=== PATIENT | female | born 1995 | race Caucasian/White ===

== ENCOUNTER → 2016-11-30 | Outpatient (CLI) | payer OTHER ==
--- NOTE | 2016-11-30 17:59 | REP ---
Right foot series: Two views. History: Injury. Findings: Overall mineralization pattern is normal. There is no visible fracture or subluxation. Impression: Negative right foot radiographs. Signed by Ancelmo Barnard MD 12/01/2016 07:58 A
--- NOTE | 2016-11-30 17:59 | REP ---
Right ankle series: Four views: History: Injury to the right ankle. Findings: Four views of the right ankle demonstrate intact ankle mortise. No fracture or subluxation is seen. Mild anterior soft tissue swelling. Impression: No fracture seen. Mild anterior swelling. Signed by Ancelmo Barnard MD 12/01/2016 07:58 A
== END ==
LOC: M RAD 14:43
PROVIDERS: ATTEND Family Medicine Addiction Medicine
DX: S99.811A Other specified injuries of right ankle, initial encounter (principal); X58.XXXA Exposure to other specified factors, initial encounter; Y92.89 Other specified places as the place of occurrence of the external cause; Y93.89 Activity, other specified; Y99.8 Other external cause status

== ENCOUNTER 2017-01-12 15:02 | Outpatient (RCR) | payer OTHER | END 2017-01-15 | LOC: M PT 15:02 | PROVIDERS: ATTEND Family Medicine Addiction Medicine | DX: Z51.89 Encounter for other specified aftercare (principal); S99.811S Other specified injuries of right ankle, sequela; M54.2 Cervicalgia; X58.XXXS Exposure to other specified factors, sequela ==

== ENCOUNTER 2017-02-18 14:19 | Outpatient (RCR) | payer OTHER | END 2017-03-17 | LOC: M PT 14:19 | PROVIDERS: ATTEND Family Medicine Addiction Medicine | DX: Z51.89 Encounter for other specified aftercare (principal); M54.2 Cervicalgia; S99.811D Other specified injuries of right ankle, subsequent encounter; X58.XXXD Exposure to other specified factors, subsequent encounter ==

== ENCOUNTER → 2017-07-29 | Outpatient (REF) | payer OTHER | LOC: M SFHCWAGY 11:02 | DX: Z83.2 Family history of diseases of the blood and blood-forming organs and certain disorders involving the immune mechanism (principal) ==

== ENCOUNTER → 2017-08-17 | Outpatient (REF) | payer OTHER | LOC: M SFHCPLAZ 11:32 | DX: Z83.2 Family history of diseases of the blood and blood-forming organs and certain disorders involving the immune mechanism (principal) ==

== ENCOUNTER 2018-03-21 15:26 | Emergency (ER) | payer OTHER ==
[2018-03-21] MEDS: IBUPROFEN 600 MG TAB PO (18:30)
[2018-03-21] MEDS: LIDOCAINE VISCOUS 2% SOLN 15ML UDC SS (18:30)
[2018-03-21] MEDS: ONDANSETRON 4 MG ORAL DISINTEGRATING TAB (Q0162 PER 1MG) PO (18:30)
[2018-03-21 18:34] LABS: INFLUENZA A AMPLIFICATION NEGATIVE (NEGATIVE); INFLUENZA B AMPLIFICATION NEGATIVE (NEGATIVE)
[2018-03-21 19:03] LABS: HEMOGLOBIN 13.9 g/dl (12.0-15.5); MEAN CORPUSCULAR HEMOGLOBIN 28.2 pg (27.0-33.0); MEAN CORPUSCULAR HGB CONC 33.1 g/dl (32.0-36.5); MEAN CORPUSCULAR VOLUME 85.2 fl (80.0-96.0); PLATELET COUNT, AUTOMATED 326 10^3/uL (150-450); RED BLOOD COUNT 4.93 10^6/uL (4.00-5.40); RED CELL DISTRIBUTION WIDTH 12.9 % (11.5-14.5); WHITE BLOOD COUNT 9.8 10^3/uL (4.0-10.0)
[2018-03-21 19:08] LABS: CONTROL LINE MONO INT CTR LINE PRESENT; MONO SCRN NEGATIVE (NEGATIVE)
[2018-03-21 19:09] LABS: ADD MANUAL DIFFER YES; DIFF SLIDE NUMBER 401; POSITIVE DIFF POS FLAG; POSITIVE MORPH POS FLAG
[2018-03-21 19:19] LABS: ANION GAP 7 MEQ/L (8-16); AST/SGOT 132 U/L (7-37); BLOOD UREA NITROGEN 12 MG/DL (7-18); CALCIUM LEVEL 9.3 MG/DL (8.5-10.1); CARBON DIOXIDE LEVEL 27 MEQ/L (21-32); CHLORIDE LEVEL 103 MEQ/L (98-107); GLOMERULAR FILTRATION RATE > 60.0 (>60); GLUCOSE, FASTING 91 MG/DL (70-100); POTASSIUM SERUM 3.8 MEQ/L (3.5-5.1); SODIUM LEVEL 137 MEQ/L (136-145)
[2018-03-21 19:20] LABS: ALBUMIN 3.7 GM/DL (3.2-5.2); ALBUMIN/GLOBULIN RATIO 0.86 (1.00-1.93); ALKALINE PHOSPHATASE 382 U/L (45-117); ALT/SGPT 209 U/L (12-78); BILIRUBIN,DIRECT 1.2 MG/DL (0.0-0.2); BILIRUBIN,TOTAL 2.2 MG/DL (0.2-1.0); LIPASE 171 U/L (73-393)
[2018-03-21 19:36] LABS: ATYPICAL LYMPH 13 % (0-5); BANDS 4 % (< 11); BASOPHILS 1 % (0-4); LYMPHOCYTES 42 % (16-52); MONOCYTES 1 % (0-8); NEUTROPHILS 39 % (35-75); PLATELET ESTIMATE NORMAL (NORMAL)
[2018-03-21] MEDS: METOCLOPRAMIDE 10 MG TAB PO (21:10)
[2018-03-21] MEDS: PROMETHAZINE 25 MG TAB PO (21:55)
[2018-03-21] MEDS: NS 1,000 ML IV (22:30)
[2018-03-21] MEDS: ONDANSETRON 4MG/2ML VIAL (J2405) IV (22:38)
[2018-03-21 22:58] LABS: CONTROL LINE HCG INT CTR LINE PRESENT; HCG, SERUM QUALITATIVE NEGATIVE (NEGATIVE)
[2018-03-21 23:53] LABS: AMORPHOUS SEDIMENT SMALL (NEGATIVE); APPEARANCE, URINE CLOUDY (CLEAR); BACTERIA, URINE AUTO 2+ (NEGATIVE); BILIRUBIN, URINE AUTO 1+ (NEGATIVE); BLOOD, URINE BLOOD 2+ (NEGATIVE); COLOR, URINE AMBER (YELLOW); GLUCOSE, URINE (UA) AUTO NEGATIVE (NEGATIVE); KETONE, URINE AUTO 1+ mg/dL (NEGATIVE); LEUKOCYTE ESTERASE, URINE AUTO TRACE (NEGATIVE); MUCUS, URINE LARGE (NEGATIVE); NITRITE, URINE AUTO NEGATIVE (NEGATIVE); PROTEIN, URINE AUTO 1+ mg/dL (NEGATIVE); RBC, URINE AUTO 2 /HPF (0-3); SPECIFIC GRAVITY URINE AUTO 1.024 (1.002-1.035); SQUAMOUS EPITHELIAL CELL UR AU 7 /HPF (0-6); WBC, URINE AUTO 3 /HPF (0-3)
[2018-03-22] MEDS ORDERED: ISOVUE-370 76% 100ML VIAL (Q9967) As Ordered (00:54)
[2018-03-22 01:00] LABS: GAMMA GLUTAMYLTRANSPEPTIDASE 105 U/L (5-55)
[2018-03-22] MEDS: D5W 1,000 ML IV (01:00)
[2018-03-22 11:02] LABS: HEPATITIS C VIRUS ABY INDEX 0.1 INDEX (<0.8)
[2018-03-22 11:02] LABS: HEPATITIS A ANTIBODY IGM NEGATIVE (NEGATIVE); HEPATITIS B CORE ANTIBODY IGM NEGATIVE (NEGATIVE); HEPATITIS B SURFACE ANTIGEN NEGATIVE (NEGATIVE); HIV 1&2 SCREEN CENTAUR NEGATIVE (NEGATIVE)
[2018-03-24 00:30] LABS: EBV VIRAL CAPSID AG IgG 59.5 U/mL (0.0-17.9)
== END 2018-03-22 03:50 | disposition home or self-care (01) ==
LOC: M ED 03-22 03:50
DX: R94.5 Abnormal results of liver function studies (principal); R16.1 Splenomegaly, not elsewhere classified; R10.9 Unspecified abdominal pain; R11.2 Nausea with vomiting, unspecified; K76.0 Fatty (change of) liver, not elsewhere classified; R51 Headache; Z79.899 Other long term (current) drug therapy
CPT/HCPCS: J2405

== ENCOUNTER → 2018-04-06 | Outpatient (REF) | payer OTHER ==
[~2018-04-06] MED LIST: DESO1TAB5 PO; EXCETAB80 PO; REGL10TA6 PO; SUMA100T2 PO
[2018-04-06 19:11] LABS: ALT/SGPT 88 U/L (12-78); BILIRUBIN,TOTAL 0.5 MG/DL (0.2-1.0); BLOOD UREA NITROGEN 17 MG/DL (7-18); CALCIUM LEVEL 9.5 MG/DL (8.5-10.1); CARBON DIOXIDE LEVEL 30 MEQ/L (21-32); CHLORIDE LEVEL 103 MEQ/L (98-107); CREATININE FOR GFR 0.66 MG/DL (0.55-1.30); FERRITIN 87 NG/ML (8-252); GLOMERULAR FILTRATION RATE > 60.0 (>60); GLUCOSE, FASTING 90 MG/DL (70-100); IRON (FE) 67 UG/DL (50-170); POTASSIUM SERUM 4.1 MEQ/L (3.5-5.1); SODIUM LEVEL 139 MEQ/L (136-145); TOTAL PROTEIN 7.9 GM/DL (6.4-8.2)
[2018-04-06 19:16] LABS: BASO # 0.1 10^3/uL (0.0-0.2); BASO % 1.3 % (0.0-1.0); EOS # 0.2 10^3/uL (0.0-0.50); EOS % 2.2 % (0.0-3.0); HEMATOCRIT 40.5 % (36.0-47.0); HEMOGLOBIN 12.9 g/dl (12.0-15.5); LYMPH # 3.5 10^3/uL (1.5-6.5); LYMPH % 51.8 % (24.0-44.0); MEAN CORPUSCULAR HEMOGLOBIN 27.9 pg (27.0-33.0); MEAN CORPUSCULAR HGB CONC 31.9 g/dl (32.0-36.5); MEAN CORPUSCULAR VOLUME 87.5 fl (80.0-96.0); MONO # 0.5 10^3/uL (0.0-0.8); MONO % 7.6 % (0.0-5.0); NEUTROPHILS # 2.5 10^3/uL (1.8-7.7); NEUTROPHILS % 36.8 % (36.0-66.0); PLATELET COUNT, AUTOMATED 475 10^3/uL (150-450); RED BLOOD COUNT 4.63 10^6/uL (4.00-5.40); WHITE BLOOD COUNT 6.8 10^3/uL (4.0-10.0)
[2018-04-07 09:32] LABS: HEPATITIS B SURFACE ANTIBODY POSITIVE (POSITIVE)
[2018-04-07 09:43] LABS: HEPATITIS B SURFACE ANTIGEN NEGATIVE (NEGATIVE)
[2018-04-07 10:12] LABS: HEPATITIS C VIRUS ABY INDEX 0.2 INDEX (<0.8)
== END ==
LOC: M LAB REF 18:39
PROVIDERS: ATTEND Family Medicine Addiction Medicine
DX: R94.5 Abnormal results of liver function studies (principal)

== ENCOUNTER → 2018-12-15 | Outpatient (REF) | payer OTHER ==
[2018-12-15 11:35] LABS: ALBUMIN 4.5 GM/DL (3.2-5.2); BILIRUBIN,DIRECT 0.2 MG/DL (0.0-0.2); BILIRUBIN,TOTAL 0.9 MG/DL (0.2-1.0); TOTAL PROTEIN 7.9 GM/DL (6.4-8.2)
== END ==
LOC: M SFHCPLAZ 09:26
PROVIDERS: ATTEND Family Medicine
DX: R11.10 Vomiting, unspecified (principal)

== ENCOUNTER → 2019-06-12 | Outpatient (CLI) | payer OTHER, MEDICAID ==
--- NOTE | 2019-06-12 15:54 | REP ---
Chest x-ray: Two views. History: Cough . Comparison study: No comparison study . Findings: The lungs are well inflated and free of infiltrate. The pleural angles are sharp. The heart size is normal. Pulmonary vasculature is not increased. No significant bony abnormality is seen. Impression: Negative chest x-ray. Electronically Signed by Ancelmo Barnard MD 06/12/2019 03:46 P
== END ==
LOC: M LRY 15:29
PROVIDERS: ATTEND Physician Assistant
DX: R05 Cough (principal)

== ENCOUNTER → 2019-08-06 | Outpatient (REF) | payer OTHER ==
[2019-08-06 17:47] LABS: CHOLESTEROL RISK RATIO 3.775 (<5)
[2019-08-06 19:06] LABS: HEMOGLOBIN A1c 5.1 %
== END ==
LOC: M SFHCPLAZ 14:01
PROVIDERS: ATTEND Family Medicine
DX: Z13.1 Encounter for screening for diabetes mellitus (principal); Z13.6 Encounter for screening for cardiovascular disorders

== ENCOUNTER → 2019-08-17 | Outpatient (REF) | payer OTHER ==
[2019-08-17 23:51] LABS: CHLAMYDIA DNA AMPLIFICATION NEGATIVE (NEGATIVE); GC DNA AMPLIFICATION NEGATIVE (NEGATIVE)
== END ==
LOC: M SFHCPLAZ 17:57
PROVIDERS: ATTEND Obstetrics & Gynecology
DX: Z11.9 Encounter for screening for infectious and parasitic diseases, unspecified (principal); Z01.419 Encounter for gynecological examination (general) (routine) without abnormal findings

== ENCOUNTER → 2020-07-15 | Outpatient (CLI) | payer OTHER ==
--- NOTE | 2020-07-16 04:43 | REPPI ---
INDICATION: ACUTE NONINTRACTABLE TENSION TYPE HEADACHE COMPARISON: None. TECHNIQUE: AP, lateral, flexion/extension, bilateral oblique, and open-mouth views. FINDINGS: Alignment is maintained. There is no evidence for acute fracture / compression injury or subluxation. No significant degenerative changes are appreciated. Oblique views demonstrate patent neural foramen. Open mouth view demonstrates normal C1-C2 articulation and odontoid process. IMPRESSION: Normal cervical spine series. <Electronically signed by Kamran Lewis > 07/16/20 [id number]
== END ==
LOC: M PLAIMG 12:19
PROVIDERS: ATTEND Student in an Organized Health Care Education/Training Program
DX: G44.209 Tension-type headache, unspecified, not intractable (principal)

== ENCOUNTER → 2020-12-23 | Outpatient (CLI) | payer OTHER ==
[2020-12-23 18:55] LABS: CHOLESTEROL RISK RATIO 3.615 (<5)
== END ==
LOC: M PLALAB 14:13
PROVIDERS: ATTEND Student in an Organized Health Care Education/Training Program
DX: E78.5 Hyperlipidemia, unspecified (principal)

== ENCOUNTER 2021-11-18 16:00 | Emergency (ER) | payer OTHER ==
[~2021-11-18] VITALS: Ht 160 cm; Wt 68.2 kg
[2021-11-18 16:02] VITALS: BP 123/70
[2021-11-18] MEDS ORDERED: CITA20TA7 (16:10)
[2021-11-18] MEDS ORDERED: TOPI25CA5 (16:10)
== END 2021-11-18 17:56 | disposition left against medical advice (07) ==
LOC: M ED 16:00
DX: Z53.21 Procedure and treatment not carried out due to patient leaving prior to being seen by health care provider (principal)

== ENCOUNTER → 2022-07-09 | Outpatient (CLI) | payer OTHER ==
[~2022-07-09] MED LIST changes: +CITA20TA7; +TOPI25CA5
[2022-07-09 17:35] LABS: HEMATOCRIT 43.3 % (36.0-47.0); MEAN CORPUSCULAR HEMOGLOBIN 27.9 pg (27.0-33.0); MEAN CORPUSCULAR HGB CONC 32.3 g/dl (32.0-36.5); MEAN CORPUSCULAR VOLUME 86.3 fl (80.0-96.0); PLATELET COUNT, AUTOMATED 393 10^3/uL (150-450); RED BLOOD COUNT 5.02 10^6/uL (4.00-5.40); WHITE BLOOD COUNT 12.2 10^3/uL (4.0-10.0)
[2022-07-09 18:08] LABS: ALKALINE PHOSPHATASE 91 U/L (46-116); ALT/SGPT 21 U/L (7.0-40); AST/SGOT 14 U/L (<34); BILIRUBIN,TOTAL 0.5 MG/DL (0.3-1.2); BLOOD UREA NITROGEN 12 MG/DL (9-23); CALCIUM LEVEL 9.6 MG/DL (8.5-10.1); CARBON DIOXIDE LEVEL 27 MMOL/L (20-31); CHLORIDE LEVEL 105 MMOL/L (98-107); CHOLESTEROL LEVEL 168 MG/DL (<200); CHOLESTEROL RISK RATIO 3.98 (<5); CREATININE FOR GFR 0.71 MG/DL (0.55-1.30); FREE T4 0.89 NG/DL (0.89-1.76); GLOMERULAR FILTRATION RATE > 60.0 (>60); GLUCOSE, FASTING 87 MG/DL (60-100); HDL CHOLESTEROL 42.2 MG/DL (>40); LDL CHOLESTEROL 101.4 MG/DL (<100); NON-HDL-C 125.8 MG/DL; POTASSIUM SERUM 4.1 MMOL/L (3.5-5.1); SODIUM LEVEL 139 MMOL/L (136-145); TOTAL PROTEIN 6.9 G/DL (5.7-8.2); TRIGLYCERIDES LEVEL 122 MG/DL (<150)
== END ==
LOC: M PLALAB 15:15
PROVIDERS: ATTEND Student in an Organized Health Care Education/Training Program
DX: R63.5 Abnormal weight gain (principal)

== ENCOUNTER → 2022-12-06 | Outpatient (CLI) | payer OTHER | LOC: M RAD 16:11 | PROVIDERS: ATTEND Physician Assistant Medical | DX: M25.561 Pain in right knee (principal) ==

== ENCOUNTER → 2023-05-17 | Outpatient (REF) | payer OTHER | LOC: M SFHCPLAZ 16:45 | PROVIDERS: ATTEND Physician Assistant | DX: R05.1 Acute cough (principal); J02.9 Acute pharyngitis, unspecified ==

== ENCOUNTER → 2023-06-16 | Outpatient (REF) | payer OTHER | LOC: M SFHCWAGY 10:13 | PROVIDERS: ATTEND Nurse Practitioner Family | DX: Z12.4 Encounter for screening for malignant neoplasm of cervix (principal) ==

== ENCOUNTER → 2024-02-27 | Outpatient (CLI) | payer OTHER ==
[2024-02-27 15:13] LABS: BASO # 0.1 10^3/uL (0.0-0.2); BASO % 0.6 % (0.0-1.0); EOS # 0.2 10^3/uL (0.0-0.5); EOS % 2.3 % (0.0-3.0); HEMATOCRIT 46.7 % (36.0-47.0); HEMOGLOBIN 14.9 g/dl (12.0-15.5); LYMPH # 2.5 10^3/uL (1.5-5.0); LYMPH % 26.9 % (24.0-44.0); MEAN CORPUSCULAR HEMOGLOBIN 28.1 pg (27.0-33.0); MEAN CORPUSCULAR HGB CONC 31.9 g/dl (32.0-36.5); MEAN CORPUSCULAR VOLUME 88.1 fl (80.0-96.0); MONO # 0.7 10^3/uL (0.0-0.8); MONO % 7.3 % (2.0-8.0); NEUTROPHILS # 5.9 10^3/uL (1.5-8.5); NEUTROPHILS % 62.6 % (36.0-66.0); PLATELET COUNT, AUTOMATED 370 10^3/uL (150-450); WHITE BLOOD COUNT 9.4 10^3/uL (4.0-10.0)
[2024-02-27 15:48] LABS: ALKALINE PHOSPHATASE 94 U/L (35-104); ALT/SGPT 20 U/L (7.0-40); AST/SGOT 9 U/L (<34); BILIRUBIN,TOTAL 0.5 MG/DL (0.3-1.2); BLOOD UREA NITROGEN 13 MG/DL (9-23); CALCIUM LEVEL 9.6 MG/DL (8.5-10.1); CARBON DIOXIDE LEVEL 24 MMOL/L (20-31); CHLORIDE LEVEL 112 MMOL/L (98-107); CHOLESTEROL LEVEL 208 MG/DL (<200); CHOLESTEROL RISK RATIO 4.58 (<5); CREATININE FOR GFR 0.81 MG/DL (0.55-1.30); GLOMERULAR FILTRATION RATE > 60.0 (>60); GLUCOSE, FASTING 87 MG/DL (60-100); HDL CHOLESTEROL 45.4 MG/DL (>40); LDL CHOLESTEROL 141.4 MG/DL (<100); NON-HDL-C 162.6 MG/DL; POTASSIUM SERUM 4.3 MMOL/L (3.5-5.1); SODIUM LEVEL 142 MMOL/L (136-145); TOTAL PROTEIN 7.3 G/DL (5.7-8.2); TRIGLYCERIDES LEVEL 106 MG/DL (<150)
[2024-02-27 15:50] LABS: FREE T4 0.98 NG/DL (0.89-1.76); THYROID STIMULATING HORMONE 1.962 uIU/ML (0.55-4.78)
== END ==
LOC: M PLALAB 12:43
PROVIDERS: ATTEND Student in an Organized Health Care Education/Training Program
DX: Z00.00 Encounter for general adult medical examination without abnormal findings (principal)

== ENCOUNTER → 2024-07-25 | Outpatient (REF) | payer OTHER | LOC: M LAB REF 17:11 | PROVIDERS: ATTEND Physician Assistant | DX: J03.90 Acute tonsillitis, unspecified (principal) ==

== ENCOUNTER → 2025-02-06 | Outpatient (REF) | payer OTHER | LOC: M LAB REF 21:21 | PROVIDERS: ATTEND Physician Assistant | DX: B34.9 Viral infection, unspecified (principal) ==

== ENCOUNTER → 2025-03-18 | Outpatient (REF) | payer OTHER | LOC: M LAB REF 16:59 | PROVIDERS: ATTEND Physician Assistant Medical | DX: B34.9 Viral infection, unspecified (principal) ==